=== PATIENT | male | born 1945 | race Caucasian/White ===

== ENCOUNTER 2024-04-24 14:34 | Outpatient (CLI) | payer MEDICARE, OTHER | END 2024-04-24 14:35 | disposition home or self-care (01) | LOC: CSHRAD 14:34 | PROVIDERS: ATTEND Family Medicine | DX: R60.0 Localized edema (principal); I83.90 Asymptomatic varicose veins of unspecified lower extremity | CPT/HCPCS: 93970 ==

== ENCOUNTER 2025-05-21 10:36 | Outpatient (CLI) | payer MEDICARE, OTHER | END 2025-05-21 10:37 | disposition home or self-care (01) | LOC: CSHULT 10:36 | PROVIDERS: ATTEND Otolaryngology Plastic Surgery within the Head & Neck | DX: E04.1 Nontoxic single thyroid nodule (principal); E04.2 Nontoxic multinodular goiter | CPT/HCPCS: 76536 ==

== ENCOUNTER 2025-07-08 08:30 | Outpatient (CLI) | payer MEDICARE, OTHER | END 2025-07-08 08:31 | disposition home or self-care (01) | LOC: CSHSLEEP 08:30 | PROVIDERS: ATTEND Physician Assistant | DX: G47.33 Obstructive sleep apnea (adult) (pediatric) (principal); R09.89 Other specified symptoms and signs involving the circulatory and respiratory systems; R06.83 Snoring; I11.9 Hypertensive heart disease without heart failure | CPT/HCPCS: 95800 ==